=== PATIENT | male | born 1970 | race Caucasian/White ===

== ENCOUNTER 2020-10-01 16:00 | Emergency (ER) | payer OTHER ==
--- NOTE | 2020-10-01 16:41 | EDM.PDOC ---
ED HPI GENERAL MEDICAL PROBLEM - General Stated Complaint: LACERATION TO R THUMB Time Seen by Provider: 10/01/20 16:38 Source of Information: Reports: Patient History Limitations: Reports: No Limitations - History of Present Illness INITIAL COMMENTS - FREE TEXT/NARRATIVE: Patient comes emergency department today by ambulance after sustaining a chainsaw injury to the left forearm. Just prior to arrival the patient was in a boom truck cutting trees when the chainsaw slipped and cut him on the left volar surface of the mid left forearm. There was quite a bit of bleeding on the scene and they had attempted to apply a tourniquet. No syncope. He is unsure of when his last tetanus shot was. He does complain of some paresthesias to his thumb and 2nd finger of his left hand. Otherwise no other paresthesias. No other trauma to left upper extremity. He is not on any anticoagulants. Right Finger-Thumb Pain Score (Numeric/FACES): 1 - Related Data Allergies Allergy/AdvReac Type Severity Reaction Status Date / Time amoxicillin Allergy Redness Verified 10/01/20 17:21 Home Meds: Home Meds . [No Known Home Meds] 10/01/20 [History] ED ROS GENERAL - Review of Systems Review Of Systems: Comprehensive ROS is negative, except as noted in HPI. ED EXAM, SKIN/RASH Exam: See Below Exam Limited By: No Limitations General Appearance: Alert, WD/WN, Anxious Eye Exam: Bilateral Eye: EOMI Nose: Nasal Deformity Respiratory/Chest: No Respiratory Distress Cardiovascular: Normal Peripheral Pulses Peripheral Pulses: 2+: Radial (L), Radial (R) Extremities: No: Normal Inspection (Exam is isolated to the right hand. On the distal tip of the distal phalange of the right thumb. The fillet type laceration on the very distal aspect of it this does not traverse into the nail nor the nail bed or matrix. It is rather superficial. It is approximately 2 cm in length. ) Neurological: Alert, Oriented, No Motor/Sensory Deficits ED SKIN PROCEDURES - Laceration/Wound Repair Right Distal Digit - 5th (Baby) Appearance: Superficial Distal NVT: Neuro & Vascular Intact Skin Prep: Chlorhexidine (Hibiciens), Saline Closed with: Dermabond Lac/Wound length In cm: 2 Sterile Dressing Applied: None Tetanus Status Addressed: Yes Course - Vital Signs Last Recorded V/S: Last Vital Signs Temp 98.1 F 10/01/20 16:20 Pulse 72 10/01/20 16:20 Resp 16 10/01/20 16:20 BP 156/73 H 10/01/20 16:20 Pulse Ox 100 10/01/20 16:20 Departure - Departure Time of Disposition: 16:38 Disposition: Home, Self-Care 01 Clinical Impression: Laceration of thumb without complication Qualifiers: Encounter type: initial encounter Laterality: right Qualified Code(s): S61.011A - Laceration without foreign body of right thumb without damage to nail, initial encounter - Discharge Information Instructions: Laceration Care, Adult, [id number], Sutures, Víctor, or Adhesive Wound Closure, [id number] Referrals: PCP,Not In Area [Primary Care Provider] - Additional Instructions: Keep the area clean and dry. Do not allow to get wet. Watch for signs of infection. Do not pull on the glue. You may trim it as it peels off. Recheck if any concerns or problems. Sepsis Event Note (ED) - Focused Exam Vital Signs: Vital Signs Temp Pulse Resp BP Pulse Ox 10/01/20 16:20 98.1 F 72 16 156/73 H 100
== END 2020-10-01 16:50 | disposition home or self-care (01) ==
LOC: VM.ED 16:00
DX: S61.011A Laceration without foreign body of right thumb without damage to nail, initial encounter (principal); Z88.0 Allergy status to penicillin; W29.3XXA Contact with powered garden and outdoor hand tools and machinery, initial encounter
CPT/HCPCS: 12001; 99282-25; 99283